=== PATIENT | female | born 1955 | race Hispanic/Latino ===

== ENCOUNTER 2017-05-20 22:04 | Emergency (ER) | payer BC ==
[~2017-05-20] VITALS: Ht 144.8 cm; Wt 81.7 kg
== END 2017-05-20 22:40 | disposition home or self-care (01) ==
LOC: ED 22:04
DX: K04.7 Periapical abscess without sinus (principal); I10 Essential (primary) hypertension
CPT/HCPCS: 99282

== ENCOUNTER 2018-03-19 02:31 | Emergency (ER) | payer BC ==
[~2018-03-19] VITALS: Ht 144.8 cm; Wt 81.7 kg
[2018-03-19] MEDS ORDERED: ZOFRAN4 MG PO (04:58)
== END 2018-03-19 05:13 | disposition home or self-care (01) ==
LOC: ED 02:31
DX: K52.9 Noninfective gastroenteritis and colitis, unspecified (principal); I10 Essential (primary) hypertension
CPT/HCPCS: 80053; 81001; 85025; 96374; 96375; 99284-25; J2270; J2405; J7030